=== PATIENT | male | born 1985 | race African-American/Black ===

== ENCOUNTER 2016-10-21 14:08 | Emergency (ER) | payer OTHER ==
[~2016-10-21 14:08] MED LIST: CYCL-319 PO; HYDR-3498 PO; IBUP-1542 PO; IBUP800T25 PO; NAPR-260 PO
[2016-10-21] MEDS ORDERED: KETOROLAC 30 MG INJ IM STA (14:44)
--- NOTE | 2016-10-21 14:54 | ERD ---
ER Documentation Chief Complaint Date/Time DATE: 10/21/16 TIME: 14:50 Chief Complaint back pain HPI 31 yo male comes to the ER with upper back pain that started this afternoon while he was trying to go from sitting to standing position. Patient states that he has a "muscle spasm" and he states that he has had the same pain in the past before. Pain is achy, sharp, spasm like, it is in the mid back. He has no chest pain, shortness of breath. He denies low back pain, saddle anesthesia loss of bowel bladder function. He then would like for us to check his kidneys , states that he has not been drinking any water and only drinks soda. He denies any hematuria, fevers or chills or nausea vomiting. ROS All systems reviewed and are negative except as per history of present illness. Medications Home Meds Active Scripts Ibuprofen* (Motrin*) 600 Mg Tab, 600 MG PO Q6, #30 TAB Prov:KULDEEP MATHEWS PA-C 10/21/16 Cyclobenzaprine Hcl* (Cyclobenzaprine Hcl*) 5 Mg Tablet, 5 MG PO Q8H Y for PAIN , #10 TAB Prov:KULDEEP MATHEWS PA-C 10/21/16 Ibuprofen* (Motrin*) 800 Mg Tab, 800 MG PO Q6, #30 TAB Prov:PATY COOK PA-C 05/06/15 Ibuprofen* (Motrin*) 600 Mg Tab, 600 MG PO Q8H Y for PAIN, #30 TAB 0 Refills Prov:FRANCISCO DOHERTY PA-C 05/05/15 Cyclobenzaprine Hcl* (Cyclobenzaprine Hcl*) 10 Mg Tablet, 10 MG PO TID, #20 TAB Prov:PATY COOK PA-C 01/08/15 Naproxen* (Naprosyn*) 500 Mg Tablet, 500 MG PO BID Y for PAIN AND/OR INFLAMMATION, #30 TAB Prov:PATY COOK PA-C 01/08/15 Hydrocodone Bit-Acetaminophen* ([place]*) 5-325 Mg Tab, 1 TAB PO Q6 Y for PAIN, # 15 TAB Prov:PATY COOK PA-C 01/08/15 Allergies Allergies: Uncoded Allergies: FRUIT (Allergy, Severe, ANAPHALAXIS, 10/27/12) PMhx/Soc History of Surgery: No Anesthesia Reaction: No Hx Neurological Disorder: No Hx Respiratory Disorders: No Hx Cardiac Disorders: No Hx Psychiatric Problems: No Hx Miscellaneous Medical Probl: No Hx Alcohol Use: Yes (OCCASSIONAL) Hx Substance Use: No Hx Tobacco Use: No Smoking Status: Never smoker Physical Exam Physical Exam General: Well-developed, well-nourished. The patient appears in no acute distress. HEENT: Head is normocephalic, atraumatic. No scleral icterus. Neck: Supple. Nontender. Lungs: Clear to auscultation. Normal air movement. Heart: Regular rate and rhythm. S1 and S2 are normal. No murmurs, gallops, or rubs. Abdomen: Soft, nontender, nondistended. Bowel sounds are normoactive. No CVA tenderness Back: Diffuse paraspinal tenderness in the midthoracic region. No rash Extremities: No clubbing or cyanosis. Normal pulses. Moving extremities x 4. No weakness. Neurologic: Alert and oriented 3. No focal deficits. Skin: Normal turgor. No rash or lesions. Result Diagram: 10/21/16 1500 10/21/16 1500 Results 24 hrs Laboratory Tests Test 10/21/16 15:00 White Blood Count 8.210^3/ul Red Blood Count 6.5410^6/ul Hemoglobin 14.3g/dl Hematocrit 45.0% Mean Corpuscular Volume 68.8fl Mean Corpuscular Hemoglobin 21.9pg Mean Corpuscular Hemoglobin Concent 31.8g/dl Red Cell Distribution Width 16.9% Platelet Count 43536^3/UL Mean Platelet Volume 10.8fl Neutrophils % 62.8% Lymphocytes % 23.2% Monocytes % 7.3% Eosinophils % 6.0% Basophils % 0.5% Nucleated Red Blood Cells % 0.0/100WBC Neutrophils # 5.210^3/ul Lymphocytes # 1.910^3/ul Monocytes # 0.610^3/ul Eosinophils # 0.510^3/ul Basophils # 0.010^3/ul Nucleated Red Blood Cells # 0.010^3/ul Urine Color YELLOW Urine Clarity CLEAR Urine pH 6.0 Urine Specific [place] >=1.030 Urine Ketones NEGATIVE Urine Nitrite NEGATIVE Urine Bilirubin NEGATIVE Urine Urobilinogen 0.2 E.U./dL Urine Leukocyte Esterase NEGATIVE Urine Hemoglobin NEGATIVE Urine Glucose NEGATIVE% Urine Total Protein NEGATIVE Sodium Level 138mmol/L Potassium Level 4.0mmol/L Chloride Level 100mmol/L Carbon Dioxide Level 28mmol/L Anion Gap 14 Blood Urea Nitrogen 11mg/dl Creatinine 1.00mg/dl Glucose Level 65mg/dl Calcium Level 9.6mg/dl Total Bilirubin 0.9mg/dl Direct Bilirubin 0.00mg/dl Indirect Bilirubin 0.9mg/dl Aspartate Amino Transf (AST/SGOT) 31IU/L Alanine Aminotransferase (ALT/SGPT) 47IU/L Alkaline Phosphatase 48IU/L Total Protein 7.9g/dl Albumin 4.6g/dl Globulin 3.30g/dl Albumin/Globulin Ratio 1.39 Lipase 62U/L Current Medications Medications (Trade) Dose Ordered Sig/Kj Route PRN Reason Start Time Stop Time Status Last Admin Dose Admin Ketorolac Tromethamine (Toradol) 30 mg ONCE STAT IM 10/21/16 14:44 10/21/16 14:45 DC 10/21/16 15:08 Diazepam (Valium) 5 mg ONCE ONCE PO 10/21/16 15:00 10/21/16 15:01 DC 10/21/16 15:07 Procedures/MDM ED course: Labs and urine were obtained. He was given Toradol 30 mg IM, Valium 5 mg by mouth. MDM: 31-year-old male comes in with mid thoracic back pain, patient was given Toradol and Valium responded to the pain medication well. He states that he wanted us to check his kidneys, as he has not been drinking enough water lately. Patient does not have any signs of dehydration, renal insufficiency, urinary tract infection. No blood in urine, I doubt kidney stones or septic kidney stones. This is likely musculoskeletal given that the patient states he was trying to go into a sitting position and reports that is similar to his back pain which she has had before that were back spasms. Departure Diagnosis: Primary Impression: Back pain Condition: Good KULDEEP MATHEWS PA-C October 21, 2016 14:54
[2016-10-21] MEDS ORDERED: DIAZEPAM 5 MG TAB PO ONE (15:00)
[2016-10-21 15:07] LABS: ADD SCAN DIFF NO
[2016-10-21 15:11] LABS: ADD UMIC NO; BASOPHILS % 0.5 % (0.0-2.0); EOSINOPHILS # 0.5 10^3/ul (0.0-0.5); HEMOGLOBIN 14.3 g/dl (14.0-18.0); LYMPHOCYTES # 1.9 10^3/ul (0.8-2.9); LYMPHOCYTES % 23.2 % (15.0-51.0); MEAN CORPUSCULAR HEMOGLOBIN 21.9 pg (29.0-33.0); MEAN CORPUSCULAR HGB CONC 31.8 g/dl (32.0-37.0); MEAN CORPUSCULAR VOLUME 68.8 fl (82.0-101.0); MEAN PLATELET VOLUME 10.8 fl (7.4-10.4); MONOCYTE # 0.6 10^3/ul (0.3-0.9); MONOCYTES % 7.3 % (0.0-11.0); NEUTROPHIL # 5.2 10^3/ul (1.6-7.5); NEUTROPHILS % 62.8 % (39.0-77.0); PLATELET COUNT 220 10^3/UL (140-415); RED BLOOD COUNT 6.54 10^6/ul (4.70-6.10); RED CELL DISTRIBUTION WIDTH 16.9 % (11.5-14.5); URINE BILIRUBIN (Dip) NEGATIVE (NEGATIVE); URINE BLOOD (Dip) NEGATIVE (NEGATIVE); URINE COLOR YELLOW (YELLOW); URINE GLUCOSE (Dip) NEGATIVE (NEGATIVE); URINE KETONES (Dip) NEGATIVE (NEGATIVE); URINE LEUKOCYTE ESTERASE (Dip) NEGATIVE (NEGATIVE); URINE NITRITE (Dip) NEGATIVE (NEGATIVE); URINE TOTAL PROTEIN (Dip) NEGATIVE (NEGATIVE); URINE UROBILINOGEN (Dip) 0.2 E.U./dL (0.1-1.0); WHITE BLOOD COUNT 8.2 10^3/ul (4.8-10.8)
[2016-10-21 15:37] LABS: ALBUMIN 4.6 g/dl (3.3-4.9); ALBUMIN/GLOBULIN RATIO 1.39; BILIRUBIN,INDIRECT 0.9 mg/dl (0-1.1); BILIRUBIN,TOTAL 0.9 mg/dl (0.2-1.3); CALCIUM 9.6 mg/dl (8.4-10.2); TOTAL PROTEIN 7.9 g/dl (6.1-8.1)
[2016-10-21] MEDS ORDERED: IBUP-1542 PO (16:09)
[2016-10-21] MEDS ORDERED: CYCL5TAB PO (16:09)
== END 2016-10-21 16:15 | disposition home or self-care (01) ==
LOC: FTE 14:08
DX: M54.6 Pain in thoracic spine (principal)
CPT/HCPCS: 36415; 80053; 81003; 83690; 85025; 96372; J1885; Z7502; Z7610

== ENCOUNTER 2018-10-20 08:41 | Emergency (ER) | payer OTHER ==
[~2018-10-20] VITALS: Ht 152.4 cm; Wt 84.0 kg
[~2018-10-20 08:41] MED LIST changes: +BACL10TA PO; -CYCL-319 PO; +CYCL10TA7 PO; +CYCL5TAB PO; +IBUP-1561 PO; -IBUP800T25 PO; +IBUP800T48 PO; -NAPR-260 PO; +NAPR-985 PO
[2018-10-20 08:46] VITALS: Ht 152.4 cm; Wt 84.0 kg
[2018-10-20] MEDS ORDERED: ACETAMINOPHEN 500 MG TAB PO STA (09:37)
[2018-10-20] MEDS ORDERED: SOD CHLORIDE 0.9% 1,000 ML IV STA (09:48)
[2018-10-20] MEDS ORDERED: KETOROLAC 30 MG INJ IV STA (09:48)
[2018-10-20] MEDS ORDERED: DOCU-144 PO (11:22)
--- NOTE | 2018-10-20 11:22 | ERD ---
ER Documentation Chief Complaint Chief Complaint "MY BOWELS ARE DISCOMFORT AND I'VE BEEN TIRED FOR 2 WEEKS" HPI This is a 33-year-old male that presents to the emergency department with generalized weakness for the past 2 weeks. The patient states he has been more tired than normal. He also indicates he has been dealing with constipation for several years. He however denies any abdominal pain. He feels that he does not completely evacuate his bowels with each but bowel movement but states he is never taken stool softeners. He denies any illicit drug use. He denies any alcohol abuse. He has had no recent travel or prolonged immobilization. He has no shortness of breath at rest or exertion. He denies any weight loss. The patient smokes tobacco but denies a productive or nonproductive cough. He has had a decrease in appetite. He denies a headache. He has no neck pain. He did not take any medication prior to arrival and has had no fevers or shaking or chills. He denies any frequency urgency or dysuria or tea colored urine. ROS All systems reviewed and are negative except as per history of present illness. Medications Home Meds Active Scripts Ibuprofen* (Motrin*) 400 Mg Tab, 400 MG PO Q8, #15 TAB Prov:JUDITH العراقي MD 07/08/18 Baclofen* (Baclofen*) 10 Mg Tablet, 10 MG PO QHS for 7 Days, #7 TAB Prov:JUDITH العراقي MD 07/08/18 Ibuprofen* (Motrin*) 600 Mg Tab, 600 MG PO Q6, #30 TAB Prov:KULDEEP MATHEWS PA-C 10/21/16 Cyclobenzaprine Hcl* (Cyclobenzaprine Hcl*) 5 Mg Tablet, 5 MG PO Q8H PRN for PAIN, #10 TAB Prov:KULDEEP MATHEWS PA-C 10/21/16 Ibuprofen* (Motrin*) 800 Mg Tab, 800 MG PO Q6, #30 TAB Prov:PATY COOK PA-C 05/06/15 Ibuprofen* (Motrin*) 600 Mg Tab, 600 MG PO Q8H PRN for PAIN, #30 TAB 0 Refills Prov:FRANCISCO DOHERTY PA-C 05/05/15 Cyclobenzaprine Hcl* (Cyclobenzaprine Hcl*) 10 Mg Tablet, 10 MG PO TID, #20 TAB Prov:PATY COOK PA-C 01/08/15 Naproxen* (Naprosyn*) 500 Mg Tablet, 500 MG PO BID PRN for PAIN AND/OR INFLAMMATION, #30 TAB Prov:PATY COOK PA-C 01/08/15 Hydrocodone Bit-Acetaminophen* ([place]*) 5-325 Mg Tab, 1 TAB PO Q6 PRN for PAIN, #15 TAB Prov:PATY COOK PA-C 01/08/15 Allergies Allergies: Uncoded Allergies: FRUIT (Allergy, Severe, ANAPHALAXIS, 10/27/12) PMhx/Soc Medical and Surgical Hx: pt denies Medical Hx, pt denies Surgical Hx History of Surgery: No Anesthesia Reaction: No Hx Neurological Disorder: No Hx Respiratory Disorders: No Hx Cardiac Disorders: No Hx Psychiatric Problems: No Hx Miscellaneous Medical Probl: No Hx Alcohol Use: No Hx Substance Use: No Hx Tobacco Use: No Smoking Status: Current every day smoker Physical Exam Vitals Vital Signs Date Temp Pulse Resp B/P (MAP) Pulse Ox O2 O2 Flow FiO2 Time Delivery Rate 10/20/18 98.9 67 18 130/60 99 08:46 (83) Physical Exam Constitutional:Well-developed. Well-nourished. HEENT:Normocephalic. Atraumatic.Pupils were equal round reactive to light. Moist mucous membranes.No tonsillar exudates. Neck: No nuchal rigidity. No lymphadenopathy. No posterior cervical spine tenderness or step-offs. Respiratory: Not using accessory muscles of respiration.Lungs were clear to auscultation bilaterally. No rhonchi. No rales. No wheezing. Cardiovascular: Regular rate regular rhythm.No murmurs. No rubs were appreciated.S1, S2 normal. Distal pulses are palpable 2+ bilaterally. GI: Abdomen was soft. Nontender. Non Distended. No pulsatile abdominal masses or bruits. No rebound. No guarding. Bowel sounds were present and normal. Muscle skeletal: Full range of motion of both the upper and lower extremities bilaterally.Normal muscle tone.No assymetrical calf tenderness or swelling. Skin: No petechia, no purpura. No lesions on the palms or the soles of the feet. No maculopapular rash. NEURO: Patient was alert, awake, orientated x3.No facial droop. Gait observed and normal with no ataxia.Speech had regular rate and rhythm. No focal neurological deficits. Result Diagram: 10/20/1859 10/20/18 0959 Results 24 hrs Laboratory Tests Test 10/20/18 09:59 10/20/18 10:00 White Blood Count 6.2 10^3/ul Red Blood Count 6.28 10^6/ul Hemoglobin 13.4 g/dl Hematocrit 43.0 % Mean Corpuscular Volume 68.5 fl Mean Corpuscular Hemoglobin 21.3 pg Mean Corpuscular Hemoglobin Concent 31.2 g/dl Red Cell Distribution Width 17.0 % Platelet Count 210 10^3/UL Mean Platelet Volume 10.8 fl Immature Granulocytes % 0.300 % Neutrophils % 59.4 % Lymphocytes % 26.9 % Monocytes % 6.8 % Eosinophils % 6.3 % Basophils % 0.3 % Nucleated Red Blood Cells % 0.0 /100WBC Immature Granulocytes # 0.020 10^3/ul Neutrophils # 3.7 10^3/ul Lymphocytes # 1.7 10^3/ul Monocytes # 0.4 10^3/ul Eosinophils # 0.4 10^3/ul Basophils # 0.0 10^3/ul Nucleated Red Blood Cells # 0.0 10^3/ul Urine Color YELLOW Urine Clarity CLEAR Urine pH 6.0 Urine Specific [place] 1.014 Urine Ketones NEGATIVE mg/dL Urine Nitrite NEGATIVE mg/dL Urine Bilirubin NEGATIVE mg/dL Urine Urobilinogen 2+ mg/dL Urine Leukocyte Esterase NEGATIVE Mike/ul Urine Hemoglobin NEGATIVE mg/dL Urine Glucose NEGATIVE mg/dL Urine Total Protein NEGATIVE mg/dl Sodium Level 141 mmol/L Potassium Level 3.9 mmol/L Chloride Level 102 mmol/L Carbon Dioxide Level 30 mmol/L Anion Gap 9 Blood Urea Nitrogen 10 mg/dl Creatinine 0.82 mg/dl Est Glomerular Filtrat Rate mL/min > 60 mL/min Glucose Level 87 mg/dl Calcium Level 9.3 mg/dl Total Bilirubin 1.0 mg/dl Direct Bilirubin 0.00 mg/dl Indirect Bilirubin 1.0 mg/dl Aspartate Amino Transf (AST/SGOT) 29 IU/L Alanine Aminotransferase (ALT/SGPT) 27 IU/L Alkaline Phosphatase 50 IU/L Total Protein 7.6 g/dl Albumin 4.3 g/dl Globulin 3.30 g/dl Albumin/Globulin Ratio 1.30 Lipase 56 U/L Creatine Kinase 120 IU/L Troponin I < 0.012 ng/ml Current Medications Medications Dose Sig/Kj Start Time Status Last (Trade) Ordered Route PRN Stop Time Admin Dose Reason Admin 1,000 mg ONCE STAT 10/20/18 DC 10/20/18 Acetaminophen PO 09:37 09:45 (Tylenol 10/20/18 09:38 Tab) Sodium 1,000 ml @ Q1H STAT 10/20/18 DC 10/20/18 Chloride 1,000 mls/hr IV 09:48 10:05 10/20/18 10:47 Ketorolac 30 mg ONCE STAT 10/20/18 DC 10/20/18 Tromethamine IV 09:48 10:07 (Toradol) 10/20/18 09:57 Procedures/MDM This is a 33-year-old male that presented to the emergency department for generalized weakness. The patient had IV access established was given a liter bolus of normal saline IV Toradol as he did show signs of mild clinical dehydration. There is no evidence of rhabdomyolysis. The patient had no underlying abnormalities and is not his thyroid panel that could suggest hypothyroidism. There is no leukocytosis to suggest an infectious process. The patient had no severe electrolyte abnormalities. I obtained a 12-lead EKG tracing for atypical myocardial infarction. 12 Lead EKG tracing ordered and reviewed by myself showed: Sinus bradycardia 59 bpm and no arrhythmia. AR interval normal. QRS duration normal. ST segment elevation in all leads consistent with benign early repolarization as there is a concave upstroke with no reciprocal changes. No ST segment depression. No changes consistent with acute ischemia. I indicated the patient that this likely could be a viral etiology. The patient had no reproducible abdominal pain and states he is been dealing with constipation for several years. He will be sent home with stool softeners. The patient was discharged home in fair condition. They were instructed to return to the emergency department at any time if there was any worsening of their condition. The patient stated they would follow up with their PCP in the next 24-48 hours to initiate a suitable medication regimen under the care of their PCP as well as to allow their PCP to monitor any drug reactions. The patient was discharged home with prescriptions after they gave informed consent to the new medication. They were also fully informed by myself on the adverse effects and adverse drug interactions in order to provide adequate safeguards to prevent possible adverse reactions to medications. Departure Diagnosis: Primary Impression: Weakness Additional Impression: Constipation Constipation type: unspecified constipation type Qualified Codes: K59.00 - Constipation, unspecified Condition: JOCELYNN Grajeda MD October 20, 2018 11:22
[2018-10-20 11:33] VITALS: BP 110/68; PULSE 71; RESP 18
== END 2018-10-20 12:28 | disposition home or self-care (01) ==
LOC: FTE 08:41
DX: R53.1 Weakness (principal); F17.210 Nicotine dependence, cigarettes, uncomplicated; K59.00 Constipation, unspecified
CPT/HCPCS: 36415; 80053; 81003; 82550; 83690; 84436; 84479; 84484; 85025; 96361; 96374; J1885; J7030; Z7502; Z7610